=== PATIENT | female | born 1950 | race Caucasian/White ===

== ENCOUNTER 2017-08-02 15:46 | Emergency (ER) | payer MEDICARE, BC ==
[~2017-08-02] VITALS: Ht 144.8 cm; Wt 34.5 kg
[~2017-08-02 15:46] MED LIST: 00186-0372-20 IH; ADVIL200 MG PO; AFRIN 15 ML15 ML NS; BENADRYL25 M2 PO; BETAPACE 80MG80 MG PO; CARDIZEM CD 12120 MG PO; CARTIA XT PO; CLARITIN D TAB1 TAB PO; COLACE 100100 MG/CAP PO; COUMADIN 2MG2 MG/TAB PO; DULCOLAX10 MG RC; ELIQUIS 2.5 PO; FLONASEALLERGY NS; IRON325 M2 PO; K-DUR 10 MEQ T10 MEQ PO; LASIX 20MG TABL20 MG PO; LOTRISONE CREAM15 GM TP; MILK OF MA400 MG/52 PO; MIRALAX PA17 GM/Dose PO; MYLANTA 150 ML150 M1 PO; OXYCONTIN 20MG20 MG PO; PACERONE200 MG PO; PROAIR HFA0.09 MG/AC IH; ROXICODONE 55 MG/TAB PO; RT ADVAIR HFA 1112 G IH; SINGULAIR 110 MG/TAB PO; TYLENOL 500MG500 MG PO; TYLENOL EXTRA500 M1 PO; VASOTEC 5MG5 MG/TAB PO; VENTOLIN0.09 MG IH; VITAMIN B-1000 MCG/T PO; ZANTAC 150MG T150 MG PO; ZITHROMAX Z PA250 MG PO; ZOFRAN 4MG T4 MG/TAB PO; [UNRECOGNIZED DRUG - OTHER]
[2017-08-02 15:51] VITALS: TEMP 98.3
[2017-08-02 16:24] LABS: COLLECTION METHOD CLEAN CATCH
[2017-08-02 16:26] LABS: BASO # 0.1 (0.0-0.2); BASO % 0.9 % (0.0-2.0); EOS # 0.2 (0.0-0.7); EOS % 2.2 % (0-4.0); GRAN # 5.4 (1.4-6.5); GRAN % 70.5 % (42.2-75.2); HEMATOCRIT 44.8 % (37.0-47.0); HEMOGLOBIN 14.7 g/dl (12.5-16.0); LYMPH # 1.1 (1.2-3.4); LYMPH % 14.1 % (20.0-51.0); MEAN CELL VOLUME 100 fl (80.0-100.0); MEAN CORPUSCULAR HEMOGLOBIN 33 pg (27.0-31.0); MEAN CORPUSCULAR HGB CONC 33 g/dl (33.0-37.0); MEAN PLATELET VOLUME 11.7 fl (7.4-10.4); MONO # 0.9 (0.1-0.6); MONO % 11.5 % (1.7-9.3); PLATELET COUNT 173 K/mm3 (130-400); WHITE BLOOD COUNT 7.6 K/mm3 (4.8-10.8)
[2017-08-02 16:33] LABS: ADJUSTED CALCIUM 9.4 mg/dL (8.4-10.2); ALANINE AMINOTRANSFERASE 34 U/L (9-52); ALBUMIN 4.8 gm/dL (3.5-5.0); ALKALINE PHOSPHATASE 98 U/L (50-136); ANION GAP 9 mmol/L (7-16); BILIRUBIN,TOTAL 0.7 mg/dL (0.0-1.0); BLOOD UREA NITROGEN 15 mg/dL (7-17); CARBON DIOXIDE 29 mmol/L (22-30); CHLORIDE 101 mmol/L (98-107); CREATININE, serum 0.65 mg/dL (0.52-1.25); GLUCOSE 94 mg/dL (74-106); POTASSIUM 4.1 mmol/L (3.4-5.0); SODIUM 139 mmol/L (137-145); TOTAL PROTEIN 8.1 gm/dL (6.4-8.2)
[2017-08-02 16:34] LABS: C-REACTIVE PROTEIN < 0.5 mg/dL (0.0-0.9)
[2017-08-02 16:38] LABS: PH 8 (5-8); SQUAMOUS EPITHELIAL None Seen /hpf; URINE APPEARANCE Clear; URINE BACTERIA None Seen /hpf; URINE BILIRUBIN Negative (NEGATIVE); URINE BLOOD Negative (NEGATIVE); URINE COLOR Straw; URINE GLUCOSE Negative (NEGATIVE); URINE KETONE Negative (NEGATIVE); URINE LEUKOCYTE ESTERASE Negative (NEGATIVE); URINE PROTEIN(semi-quant) Negative (NEGATIVE); URINE RBC 0-2 /hpf; URINE UROBILINOGEN Negative (NEGATIVE); URINE WBC 0-2 /hpf
[2017-08-02] MEDS ORDERED: TAPAZOLE10 MG PO (17:19)
[2017-08-02] MEDS ORDERED: PREDNISONE10 MG PO (17:20)
[2017-08-02] MEDS ORDERED: VITAMIN B COMPL1 SGL PO (17:20)
[2017-08-02 19:12] VITALS: BP 149/93; PULSE 103
[2017-08-04] MEDS ORDERED: RT ADVAIR HFA 1112 G IH (12:03)
[2017-08-04] MEDS ORDERED: BANOPHEN25 M1 PO (12:05)
[2017-08-04] MEDS ORDERED: PROAIR HFA0.09 MG/AC IH (12:05)
[2017-08-04] MEDS ORDERED: CARDIZEM CD 24240 MG PO (12:06)
[2017-08-04] MEDS ORDERED: ELIQUIS 2.5 PO (12:06)
[2017-08-04] MEDS ORDERED: COLACE 100100 MG/CAP PO (12:06)
[2017-08-04] MEDS ORDERED: IRON TABLETS325 MG PO (12:07)
[2017-08-04] MEDS ORDERED: FLONASEALLERGY NS (12:07)
[2017-08-04] MEDS ORDERED: LASIX 20MG TABL20 MG PO (12:07)
[2017-08-04] MEDS ORDERED: MIRALAX PA17 GM/Dose PO (12:08)
[2017-08-04] MEDS ORDERED: OXYCONTIN 20MG20 MG PO (12:09)
[2017-08-04] MEDS ORDERED: OXY IR5 MG PO (12:09)
[2017-08-04] MEDS ORDERED: BETAPACE AF80 MG/TA1 PO (12:10)
[2017-08-04] MEDS ORDERED: K-DUR 10 MEQ T10 MEQ PO (12:10)
[2017-08-04] MEDS ORDERED: B-121000 MCG PO (12:11)
[2017-08-04] MEDS ORDERED: TYLENOL 500MG500 MG PO (12:11)
[2017-08-04] MEDS ORDERED: ZANTAC 150150 MG PO (12:12)
== END 2017-08-02 19:13 | disposition home or self-care (01) ==
LOC: COL.ER 15:46
PROVIDERS: Emergency Medicine
DX: R07.81 Pleurodynia (principal); I10 Essential (primary) hypertension; I48.91 Unspecified atrial fibrillation; K21.9 Gastro-esophageal reflux disease without esophagitis; Z90.89 Acquired absence of other organs
CPT/HCPCS: J2765; J3010

== ENCOUNTER 2018-01-07 09:07 | Emergency (ER) | payer MEDICARE, BC ==
[~2018-01-07] VITALS: Ht 144.8 cm; Wt 45.5 kg
[~2018-01-07 09:07] MED LIST changes: +B-121000 MCG PO; +BANOPHEN25 M1 PO; +BETAPACE AF80 MG/TA1 PO; +CARDIZEM CD 24240 MG PO; +CEFTIN 250250 MG/TAB PO; +IRON TABLETS325 MG PO; +OXY IR5 MG PO; +PREDNISONE10 MG PO; +TAPAZOLE10 MG PO; +VITAMIN B COMPL1 SGL PO; +ZANTAC 150150 MG PO
[2018-01-07 09:10] VITALS: BP 184/77; TEMP 98.6
[2018-01-07] MEDS ORDERED: PREDNISONE20 MG PO (10:09)
[2018-01-07] MEDS ORDERED: LIDODERM 5% PATC1 EA TP (10:09)
[2018-01-07 10:51] VITALS: PULSE 62
== END 2018-01-07 10:52 | disposition home or self-care (01) ==
LOC: COL.ER 09:07
DX: M75.51 Bursitis of right shoulder (principal)
CPT/HCPCS: J7512

== ENCOUNTER 2018-03-24 08:00 | Day surgery (SDC) | payer MEDICARE, BC ==
[~2018-03-24] VITALS: Ht 144.9 cm; Wt 48.5 kg
[~2018-03-24 08:00] MED LIST changes: -BETAPACE AF80 MG/TA1 PO; +BETAPACEAF120 PO; +LIDODERM 5% PATC1 EA TP; +PREDNISONE20 MG PO
[2018-03-24 08:35] LABS: POTASSIUM 3.9 mmol/L (3.4-5.0)
[2018-03-24 08:37] LABS: INR 1.4 (0.8-3.0); PROTHROMBIN TIME 15.4 SECONDS (9.7-12.8)
[2018-03-24 08:50] VITALS: BP 150/94; PULSE 108; TEMP 98.3
[2018-03-24] MEDS ORDERED: VITAMIN D 50,1.25 MG PO (09:04)
[2018-03-24] MEDS ORDERED: CARDIZEM CD 12120 MG PO (09:05)
[2018-03-24 09:09] LABS: THYROID STIMULATING HORMONE 5.28 uIU/mL (0.465-4.680)
[2018-03-24] MEDS ORDERED: CLARITIN 1010 MG/TAB PO (09:09)
[2018-03-24] MEDS ORDERED: MELAT3MGTAB PO (09:10)
[2018-03-24] MEDS ORDERED: MULTIPLE VITAMI1 CAP PO (09:11)
[2018-03-24] MEDS ORDERED: TAPAZOLE10 MG PO (09:11)
[2018-03-24] MEDS ORDERED: PREDNISONE10 MG PO (09:13)
[2018-03-24] MEDS ORDERED: SALONPAS TD (09:15)
[2018-03-24 09:45] VITALS: BP 103/51; PULSE 70
[2018-03-24 10:00] VITALS: BP 106/50; PULSE 69
[2018-03-24 10:15] VITALS: BP 115/64; PULSE 68
[2018-03-24 11:00] VITALS: BP 106/60; PULSE 75
[2018-03-24 11:15] VITALS: BP 106/60; PULSE 75
== END 2018-03-24 12:27 | disposition home or self-care (01) ==
LOC: COL.CAR 08:00
PROVIDERS: Internal Medicine Cardiovascular Disease
DX: I48.0 Paroxysmal atrial fibrillation (principal); I10 Essential (primary) hypertension; J45.909 Unspecified asthma, uncomplicated; K21.9 Gastro-esophageal reflux disease without esophagitis; E78.5 Hyperlipidemia, unspecified; G89.29 Other chronic pain; M54.9 Dorsalgia, unspecified; M89.8X1 Other specified disorders of bone, shoulder; E03.9 Hypothyroidism, unspecified; D50.9 Iron deficiency anemia, unspecified; M19.90 Unspecified osteoarthritis, unspecified site; M85.80 Other specified disorders of bone density and structure, unspecified site; I08.3 Combined rheumatic disorders of mitral, aortic and tricuspid valves; Z88.0 Allergy status to penicillin; Z88.2 Allergy status to sulfonamides; Z88.6 Allergy status to analgesic agent; Z79.01 Long term (current) use of anticoagulants; Z79.51 Long term (current) use of inhaled steroids; Z82.49 Family history of ischemic heart disease and other diseases of the circulatory system
CPT/HCPCS: J2250; J3010; J7030

== ENCOUNTER 2018-07-12 07:08 | Day surgery (SDC) | payer MEDICARE, BC ==
[~2018-07-12] VITALS: Ht 145 cm; Wt 50.8 kg
[~2018-07-12 07:08] MED LIST changes: +CLARITIN 1010 MG/TAB PO; +MASON NATURAL2000 IU PO; +MELAT3MGTAB PO; +MULTIPLE VITAMI1 CAP PO; +SALONPAS TD
[2018-07-12 08:06] LABS: HEMATOCRIT 43.8 % (37.0-47.0); HEMOGLOBIN 14.2 g/dl (12.5-16.0); MEAN CELL VOLUME 109 fl (80.0-100.0); MEAN CORPUSCULAR HEMOGLOBIN 35 pg (27.0-31.0); MEAN CORPUSCULAR HGB CONC 32 g/dl (33.0-37.0); MEAN PLATELET VOLUME 11.3 fl (7.4-10.4); PLATELET COUNT 143 K/mm3 (130-400); RED BLOOD COUNT 4.01 M/mm3 (4.10-5.30); REDCELL DISTRIBUTION WIDTH-CV 12.8 % (11.5-14.5)
[2018-07-12 08:12] LABS: INR 1.4 (0.8-3.0); PROTHROMBIN TIME 16.1 SECONDS (9.7-12.8)
[2018-07-12 08:15] LABS: CALCIUM 9.9 mg/dL (8.4-10.2); CREATININE, serum 0.9 mg/dL (0.52-1.25); POTASSIUM 4.1 mmol/L (3.4-5.0)
[2018-07-12 08:33] VITALS: BP 143/99; PULSE 105; TEMP 98
[2018-07-12] MEDS ORDERED: IMODIUM 2MG CAPS2 MG PO (08:38)
[2018-07-12 09:30] VITALS: BP 138/64; PULSE 55
[2018-07-12 10:15] VITALS: BP 127/70; PULSE 60
== END 2018-07-12 10:33 | disposition home or self-care (01) ==
LOC: COL.CAR 07:08
PROVIDERS: Internal Medicine Cardiovascular Disease
DX: I48.0 Paroxysmal atrial fibrillation (principal); I10 Essential (primary) hypertension; J45.909 Unspecified asthma, uncomplicated; E78.5 Hyperlipidemia, unspecified; I35.0 Nonrheumatic aortic (valve) stenosis; G89.29 Other chronic pain; M89.8X1 Other specified disorders of bone, shoulder; K21.9 Gastro-esophageal reflux disease without esophagitis; E03.9 Hypothyroidism, unspecified; D50.9 Iron deficiency anemia, unspecified; M19.90 Unspecified osteoarthritis, unspecified site; M85.80 Other specified disorders of bone density and structure, unspecified site; Z88.6 Allergy status to analgesic agent; Z88.0 Allergy status to penicillin; Z88.2 Allergy status to sulfonamides; Z79.01 Long term (current) use of anticoagulants; Z80.9 Family history of malignant neoplasm, unspecified; Z82.49 Family history of ischemic heart disease and other diseases of the circulatory system
CPT/HCPCS: J2704